=== PATIENT | male | born 1950 ===

== ENCOUNTER 2016-09-05 22:23 | Emergency (ER) | payer MEDICARE ==
[2016-09-05 22:32] VITALS: BP 147/59; PULSE 78; RESP 18; TEMP 97.9
--- NOTE | 2016-09-05 22:39 | ED ---
Wound/Laceration HPI - General Chief Complaint: Wound/Laceration Stated Complaint: Lac/Wrist Time Seen by Provider: 09/05/16 22:33 Source: patient, RN notes reviewed Mode of arrival: ambulatory Limitations: no limitations - History of Present Illness Initial Comments: 66-year-old male presents emergency room chief complaint of right wrist laceration. Patient states he extremity stabbed himself with appear scissors while he was trimming his chicken. Patient states he slipped and his tetanus. Patient states there is no other injuries from the incident. Patient denies any numbness or tingling.Patient denies any recent fever, chills, shortness of breath, chest pain, back pain, abdominal pain, nausea vomiting, numbness or tingling, dysuria or hematuria, constipation or diarrhea, headaches or visual changes, or any other current symptoms. - Related Data Allergies Allergy/AdvReac Type Severity Reaction Status Date / Time No Known Allergies Allergy Verified 09/05/16 22:31 Review of Systems ROS Statement: Those systems with pertinent positive or pertinent negative responses have been documented in the HPI. ROS Other: All systems not noted in ROS Statement are negative. Past Medical History Past Medical History: Chest Pain / Angina, COPD History of Any Multi-Drug Resistant Organisms: None Reported Past Surgical History: Heart Catheterization, Orthopedic Surgery, Pacemaker Additional Past Surgical History / Comment(s): 13 surgeries on his R hand for work accident. Does not use his R hand. Past Anesthesia/Blood Transfusion Reactions: No Reported Reaction Past Psychological History: No Psychological Hx Reported Smoking Status: Former smoker Past Alcohol Use History: None Reported Past Drug Use History: None Reported - Past Family History Mother Family Medical History: Cancer Additional Family Medical History / Comment(s): Leukemia General Exam - General Exam Comments Initial Comments: General: The patient is awake and alert, in no distress, and does not appear acutely ill. Neck: The neck is supple, there is no tenderness. Cardiovascular: There is a regular rate and rhythm. No murmur, rub or gallop is appreciated. Respiratory: Lungs are clear to auscultation, respirations are non-labored, breath sounds are equal. No wheezes, stridor, rales, or rhonchi. Musculoskeletal: Sensation intact with 2+ pulses of the right upper extremity. Range of motion of right elbow and right wrist. Patient does appear to have 1.5 from her laceration to the right wrist. 5 out of 5 muscle strength testing throughout. Chronic deformity to the right hand noted. Neurological: CN II-XII intact, There are no obvious motor or sensory deficits. Coordination appears grossly intact. Speech is normal. Skin: Skin is warm and dry and no rashes or lesions are noted. Psychiatric: Normal mood and affect. Limitations: no limitations Course Vital Signs 09/05/16 22:28 Temperature 97.9 F Pulse Rate 78 Respiratory 18 Rate Blood Pressure 147/59 O2 Sat by Pulse 96 Oximetry Procedures - Procedures Initial comment: The skin was anesthetized with 1% lidocaine. The laceration was then cleansed with Betadine and irrigated with normal saline. The wound was inspected, and there was no evidence of injury to deep structures. No foreign body was noted in the wound. A total of 2 skin sutures were placed utilizing 5-0 nylon to a right forearm laceration of 1.5 cm.. Medical Decision Making - Medical Decision Making 66-year-old male presents emergency room chief complaint of right wrist laceration. This time patient went suture care. We discussed follow-up. We discussed all patient's questions and return parameters. He stated he understood and he stated plan. This and will be discharged home. - Radiology Data Radiology results: image reviewed Interpreted by me: Interpreted by me: right forearm xray: 2 view, no fracture, no dislocation, no bony lesions, no foreign bodies, no soft tissue damage. Waiting official radiology read. Disposition Clinical Impression: Laceration of wrist, right Disposition: HOME SELF-CARE Condition: Stable Instructions: Care For Your Stitches (ED), Laceration (ED) Additional Instructions: Please use medication as discussed. Please follow up with family doctor if symptoms have not improved over the next two days. Please return to the emergency room if your symptoms increase or worsen or for any other concerns. Please return to the emergency room in 8-10 days to have sutures removed. Please leave wound covered for the first 24-48 hours and then leave open to air after that time. Please use clean soap and water to clean the suture area to prevent scabbing over the top of your sutures. Please watch for any signs of infection which may include but not limited to increased pain, swelling, redness , fever or chills. Please return to the emergency room if any signs of infection do occur. Please return to the emergency room for any other concerns or complications. Referrals: Breezy Cortes DO [Primary Care Provider] - 1-2 days Time of Disposition: 22:55
--- NOTE | 2016-09-05 23:08 | XR ---
EXAM: XR Right Forearm, 2 Views CLINICAL HISTORY: Reason: Right anterior wrist laceration TECHNIQUE: Frontal and lateral views of the right forearm. COMPARISON: No relevant prior studies available. FINDINGS: Bones/joints: Probable bandaging material overlying the wrist, where there is some soft tissue swelling without evidence of underlying radiopaque foreign body or acute fracture. 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 Additional degenerative and enthesopathic changes about the elbow. No evidence of wrist or elbow dislocation. Soft tissues: See above. IMPRESSION: No radiopaque foreign body or acute fracture is seen, as above.
== END 2016-09-05 23:04 | disposition home or self-care (01) ==
LOC: EC 22:23
DX: S61.511A Laceration without foreign body of right wrist, initial encounter (principal); Z87.891 Personal history of nicotine dependence; W26.8XXA Contact with other sharp object(s), not elsewhere classified, initial encounter; Y93.89 Activity, other specified; Y92.89 Other specified places as the place of occurrence of the external cause
CPT/HCPCS: 12001; 99283

== ENCOUNTER → 2019-01-01 | Outpatient (CLI) | payer MEDICARE ==
--- NOTE | 2019-01-01 09:48 | XR ---
EXAMINATION TYPE: XR finger LT DATE OF EXAM: 01/01/2019 COMPARISON: NONE HISTORY: Pain post trauma TECHNIQUE: Three views are submitted. FINDINGS: The osseous structures are intact. The joint spaces are preserved and there is no acute fracture or dislocation. Diffuse soft tissue edema. Arthropathy first carpal metacarpal joint. Bony density seen adjacent to the DIP joint. No definite metallic foreign body. IMPRESSION: 1. No definite acute fracture or dislocation if symptoms persist, follow-up study in 7 to 10 days wo uld be suggested. 2. Diffuse soft tissue edema with questionable laceration correlate clinically.
== END | disposition home or self-care (01) ==
LOC: RADXRMAIN 09:08
PROVIDERS: ATTEND Family Medicine
DX: M79.89 Other specified soft tissue disorders (principal); M79.645 Pain in left finger(s)

== ENCOUNTER → 2020-05-13 | Outpatient (CLI) | payer MEDICARE ==
--- NOTE | 2020-05-13 13:22 | XR ---
EXAMINATION TYPE: XR chest 2V DATE OF EXAM: 05/13/2020 COMPARISON: Chest x-ray 05/02/2008 HISTORY: R07.2 TECHNIQUE: Frontal and lateral views of the chest are obtained. FINDINGS: There is no focal air space opacity, pleural effusion, or pneumothorax seen. The cardiac silhouette size is within normal limits. There is a generator in left pectoral region, leads are pre sent in the right atrium, ventricle, coronary sinus, right atrial lead is deflected caudal rather angie n cephalad. Prominent lung lines suggest underlying COPD. The osseous structures are intact. IMPRESSION: No acute cardiopulmonary process. Cardiac leads as described, correlate with post proced ural exam for appropriate placement.
== END | disposition home or self-care (01) ==
LOC: RADXRMAIN 11:35
PROVIDERS: ATTEND Internal Medicine Cardiovascular Disease
DX: R07.2 Precordial pain (principal)
CPT/HCPCS: 71046